=== PATIENT | female | born 1980 | race African-American/Black ===

== ENCOUNTER → 2018-02-06 | Outpatient (CLI) | payer MEDICARE, MEDICAID ==
--- NOTE | 2018-02-06 15:04 | RADIOLOGY REPORT (SQ) ---
EXAM DESCRIPTION: CT ABD/PELVIS NO ORAL OR IV COMPLETED DATE/TIME: 02/06/2018 10:51 am REASON FOR STUDY: ABNORMAL RADIOLOGIC FINDINGS ON DX IMAGING OF UNSP KIDNEY (R93.429) R93.429 ABNOR MAL RADIOLOGIC FINDINGS ON DX IMAGING OF UNSP K COMPARISON: None. TECHNIQUE: CT scan of the abdomen and pelvis performed without intravenous or oral contrast. Images reviewed with lung, soft tissue, and bone windows. Reconstructed coronal and sagittal MPR images revi ewed. All images stored on PACS. All CT scanners at this facility use dose modulation, iterative reconstruction, and/or weight based d osing when appropriate to reduce radiation dose to as low as reasonably achievable (ALARA). [facility]: Dose Right [facility]: CareDose [facility]: Dose Right [facility]: Teradose 4D [facility]: HouseLens RADIATION DOSE: Exam DLP: 591.20 mGy. LIMITATIONS: None. FINDINGS: LOWER CHEST: No significant findings. No nodules or infiltrates. NON-CONTRASTED LIVER, SPLEEN, ADRENALS: Evaluation limited by lack of IV contrast. No identified sign ificant masses. PANCREAS: No masses. No peripancreatic inflammatory changes. GALLBLADDER: Prior cholecystectomy. RIGHT KIDNEY AND URETER: The right kidney measures 6.7 cm in length and is small in appearance. No suspicious masses. Assessment limited by lack of IV contrast. No significant calcifications. No h ydronephrosis or hydroureter. LEFT KIDNEY AND URETER: The left kidney measures 6.7 cm in length and is small in appearance. An ex ophytic 1.1 cm lesion off of the upper- mid pole of the kidney. The CT numbers are slightly above wa ter range. Assessment limited by lack of IV contrast. No significant calcifications. No hydronep hrosis or hydroureter. AORTA AND RETROPERITONEUM: No aneurysm. No retroperitoneal masses or adenopathy. BOWEL AND PERITONEAL CAVITY: Constipation. No free fluid. APPENDIX: Normal. PELVIS, BLADDER, AND ABDOMINAL WALL: Small fat containing left inguinal hernia. The uterus is bulky and prominent in appearance. No free fluid. Bladder normal. BONES: No significant findings. OTHER: No other significant finding. IMPRESSION: 1. Prior cholecystectomy. 2. The kidneys are small and its size. No evidence of hydronephrosis. 3. Small exophytic left renal lesion upper-mid pole. Further evaluation with renal ultrasound sugerica sted. 4. The uterus is prominent in appearance. Pelvic ultrasound suggested. COMMENT: Quality ID # [id number]: Final reports with documentation of one or more dose reduction techniques (e.g., Automated exposure control, adjustment of the mA and/or kV according to patient size, use of iterative reconstruction technique) TECHNICAL DOCUMENTATION: JOB ID: [id number] [employer]- All Rights Reserved Reading location - IP/workstation name: [email or web address]
== END ==
LOC: RAD 10:29
PROVIDERS: ATTEND Physician Assistant Medical
DX: R93.429 Abnormal radiologic findings on diagnostic imaging of unspecified kidney (principal)
CPT/HCPCS: 74176